=== PATIENT | male | born 1930 | race African-American/Black ===

== ENCOUNTER 2017-02-26 14:26 | Emergency (ER) | payer OTHER, MEDICAID ==
[~2017-02-26] VITALS: Ht 193 cm; Wt 97.5 kg
[~2017-02-26 14:26] MED LIST: ALLO300T2 PO; AMLO10TA80 PO; BENA20TA3 PO; COLC0.6T66 PO; DIGO250T81 PO; LORA10TA7 PO; QVAR80 IH; SODI650T PO; TIOT18CA3 IH; TRAM50TA3 PO; VIC PO
[2017-02-26] MEDS ORDERED: TRAMADOL 50MG TABLET PO ONE (16:15)
[2017-02-26] MEDS ORDERED: KETOROLAC 60MG/2ML VIAL IM ONE (16:45)
[2017-02-26 18:25] VITALS: BP 152/78
== END 2017-02-26 20:05 | disposition home or self-care (01) ==
LOC: ER 15:52
DX: M25.561 Pain in right knee (principal); I10 Essential (primary) hypertension; J45.909 Unspecified asthma, uncomplicated; Z96.659 Presence of unspecified artificial knee joint; Z88.0 Allergy status to penicillin
CPT/HCPCS: 73560; 96372; 99284; J1885; Z7610

== ENCOUNTER 2017-09-25 03:40 | Inpatient (IN) | payer MEDICAID, OTHER ==
[~2017-09-25] VITALS: Ht 190.5 cm; Wt 72.1 kg
[2017-09-25] VITALS (25 sets, daily range): BP systolic 139–167; BP diastolic 72–105
[2017-09-25] MEDS ORDERED: IPRATROPIUM BROMIDE (0.02%) 0.5MG/2.5ML NEB HHN STA (04:02)
[2017-09-25] MEDS ORDERED: ALBUTEROL (0.083%) 2.5MG/3ML NEB HHN STA (04:02)
[2017-09-25] MEDS ORDERED: METHYLPREDNISOLONE SOD SUCC 125 MG/2 ML VIAL IV STA (04:02)
[2017-09-25 04:37] LABS: BASOPHILS % 0.7 % (0.0-2.0); EOSINOPHILS % 6.7 % (0.0-5.0); HEMATOCRIT. 30.8 % (42.0-52.0); LYMPHOCYTES % 13.6 % (20.0-50.0); MEAN CORPUSCULAR HEMOGLOBIN 29.7 pg (28.0-32.0); MEAN CORPUSCULAR VOLUME 92.1 fL (80.0-94.0); MEAN PLATELET VOLUME 8.1 fl (7.4-10.4); MONOCYTES % 5.5 % (2.0-8.0); NEUTROPHILS % 73.5 % (40.0-76.0); PLATELET 260 x1000/uL (130-400); RED BLOOD CELL COUNT 3.35 mill/uL (4.7-6.1); RED CELL DISTRIBUTION WIDTH 15.3 % (11.6-14.6)
[2017-09-25 04:57] LABS: CARBON DIOXIDE 22 mEq/L (21-32); CHLORIDE 111 mEq/L (98-107)
[2017-09-25 05:02] LABS: BG BASE EXCESS -5.6 mmol/L (-2.0-2.0); BG BILEVEL POS AIRWAY PRESSURE 14/5; BG CARBOXYHEMOGLOBIN 0.6 % (0.5-1.5); BG DEOXYHEMOGLOBIN 0.8 % (0.0-5.0); BG FRACTION INSPIRED OXYGEN 50; BG HCO3 ACT 19.7 mmol/L (22.0-26.0); BG METHEMOGLOBIN 0.1 % (0.0-1.5); BG OXYGEN SATURATION 99.2 % (92.0-98.5); BG OXYHEMOGLOBIN 98.5 % (94.0-97.0); BG PCO2 37.9 mmHg (35.0-45.0); BG PH 7.334 (7.350-7.450); BG PO2 209.9 mmHg (75.0-100.0); BG SAMPLE SITE RIGHT RADIAL; BG TOTAL HEMOGLOBIN 10.5 g/dL (12.0-18.0); BG VENT MODE MASK - BIPAP
[2017-09-25 05:30] LABS: TROPONIN I 0.96 ng/mL (0.00-0.04)
[2017-09-25] MEDS ORDERED: SODIUM CHLORIDE 0.9% 1,000 ML IV SCH (06:06)
[2017-09-25] MEDS ORDERED: MORPHINE SULFATE 4 MG/ML CPJ (NOT FOR IM USE) IV PRN (07:45)
[2017-09-25] MEDS ORDERED: LORAZEPAM 2MG/ML CPJ IV PRN (07:45)
[2017-09-25] MEDS ORDERED: ONDANSETRON HCL 4MG/2ML VIAL IV PRN (07:45)
[2017-09-25] MEDS ORDERED: ENOXAPARIN 30MG/0.3ML SYR SUBCUT SCH (09:00)
[2017-09-25] MEDS ORDERED: IPRATROPIUM/ALBUTEROL 0.5-3(2.5)MG/3ML NEB INH PRN (09:00)
[2017-09-25] MEDS: FUROSEMIDE 40MG/4ML VIAL IV SCH (09:45)
[2017-09-25] MEDS: MULTIVITAMINS,THER W-MINERALS TABLET PO SCH (09:45)
[2017-09-25] MEDS: FERROUS SULFATE 325MG TABLET PO SCH (09:45)
[2017-09-25] MEDS: LORATADINE 10MG TABLET PO SCH (09:46)
[2017-09-25] MEDS: BENAZEPRIL 20MG TABLET PO SCH (09:46)
[2017-09-25] MEDS: AMLODIPINE 10MG TABLET PO SCH (09:46)
[2017-09-25] MEDS: COLCHICINE 0.6MG TABLET PO SCH (09:46)
[2017-09-25] MEDS: TRAMADOL 50MG TABLET PO SCH ×3 (10:00→21:25)
[2017-09-25] MEDS ORDERED: CLONIDINE 0.1MG TABLET PO PRN (11:15)
[2017-09-25] MEDS ORDERED: PNEUMOCOCCAL VACCINE IM ONE (13:00)
[2017-09-25] MEDS ORDERED: INFLUENZA VACCINE IM ONE (13:00)
[2017-09-25] MEDS: SODIUM BICARBONATE 650 MG TABLET PO SCH ×2 (13:30→16:29)
[2017-09-25] MEDS: METHYLPREDNISOLONE SOD SUCC 125 MG/2 ML VIAL IV SCH ×2 (13:30→21:22)
[2017-09-25 16:08] LABS: CREATINE KINASE MB FRACTION 12.8 ng/mL (0.5-3.6)
[2017-09-25 16:12] LABS: TROPONIN I 8.8 ng/mL (0.00-0.04)
[2017-09-25] MEDS: DIGOXIN 250MCG TABLET PO SCH (18:19)
[2017-09-25 18:50] LABS: CLARITY URINE CLEAR (CLEAR); COLOR URINE YELLOW (YELLOW); GLUCOSE URINE NEGATIVE (NEGATIVE); KETONES URINE NEGATIVE (NEGATIVE); LEUKOCYTE ESTERASE URINE NEGATIVE (NEGATIVE); NITRITE URINE NEGATIVE (NEGATIVE); OCCULT BLOOD URINE TRACE (NEGATIVE); PROTEIN URINE 3+ (NEGATIVE); SPECIFIC GRAVITY URINE 1.015 (1.005-1.030); UROBILINOGEN URINE 0.2 E.U./dL (0.2-1.0)
[2017-09-25 18:55] LABS: *AMPHETAMINES SCREEN URINE NEGATIVE (NEGATIVE); *BARBITURATES SCREEN URINE NEGATIVE (NEGATIVE); *BENZODIAZEPINES SCREEN URINE NEGATIVE (NEGATIVE); *COCAINE SCREEN URINE NEGATIVE (NEGATIVE); CANNABINOID URINE SCREEN NEGATIVE (NEGATIVE); METHADONE URINE SCREEN NEGATIVE (NEGATIVE); OPIATES URINE SCREEN NEGATIVE (NEGATIVE); PHENCYCLIDINE URINE SCREEN NEGATIVE (NEGATIVE)
[2017-09-25] MEDS: ASPIRIN 81MG TABLET PO SCH (21:18)
[2017-09-25 23:17] LABS: CREATINE KINASE MB FRACTION 9.7 ng/mL (0.5-3.6)
[2017-09-25 23:20] LABS: TROPONIN I 9.2 ng/mL (0.00-0.04)
[2017-09-26] VITALS (86 sets, daily range): BP systolic 111–179; BP diastolic 33–93
[2017-09-26] MEDS: ATORVASTATIN CALCIUM 10MG TABLET PO SCH ×2 (00:18→20:58)
[2017-09-26] MEDS: NITROGLYCERIN OINT 1GM/INCH UDPKT TD SCH ×3 (00:19→17:29)
[2017-09-26] MEDS ORDERED: ENOXAPARIN 60MG/0.6ML SYR SUBCUT SCH (00:30)
[2017-09-26] MEDS: TRAMADOL 50MG TABLET PO SCH ×4 (04:28→21:04)
[2017-09-26 06:25] LABS: BASOPHILS % 0.3 % (0.0-2.0); HEMATOCRIT. 27.9 % (42.0-52.0); HEMOGLOBIN. 9.3 g/dL (14.0-18.0); LYMPHOCYTES % 18.7 % (20.0-50.0); MEAN CORPUSCULAR HEMOGLOBIN 30.3 pg (28.0-32.0); MEAN CORPUSCULAR VOLUME 90.6 fL (80.0-94.0); MONOCYTES % 4.3 % (2.0-8.0); NEUTROPHILS % 76.7 % (40.0-76.0); PLATELET 193 x1000/uL (130-400); RED BLOOD CELL COUNT 3.08 mill/uL (4.7-6.1)
[2017-09-26] MEDS: METHYLPREDNISOLONE SOD SUCC 125 MG/2 ML VIAL IV SCH ×2 (06:29→13:05)
[2017-09-26 08:07] LABS: TROPONIN I 8.5 ng/mL (0.00-0.04)
[2017-09-26] MEDS: ALLOPURINOL 300 MG TABLET PO SCH (08:45)
[2017-09-26] MEDS: SODIUM BICARBONATE 650 MG TABLET PO SCH ×3 (08:45→17:29)
[2017-09-26] MEDS: FUROSEMIDE 40MG/4ML VIAL IV SCH (08:45)
[2017-09-26] MEDS: AMLODIPINE 10MG TABLET PO SCH (08:46)
[2017-09-26] MEDS: FERROUS SULFATE 325MG TABLET PO SCH (08:46)
[2017-09-26] MEDS: ASPIRIN 81MG TABLET PO SCH (08:46)
[2017-09-26] MEDS: MULTIVITAMINS,THER W-MINERALS TABLET PO SCH (08:47)
[2017-09-26] MEDS: BENAZEPRIL 20MG TABLET PO SCH (08:47)
[2017-09-26] MEDS: LORATADINE 10MG TABLET PO SCH (11:22)
[2017-09-26] MEDS: COLCHICINE 0.6MG TABLET PO SCH (11:22)
[2017-09-26] MEDS: SODIUM CHLORIDE 0.9% 1,000 ML IV SCH (11:23)
[2017-09-26] MEDS: IPRATROPIUM/ALBUTEROL 0.5-3(2.5)MG/3ML NEB HHN SCH ×2 (16:21→20:06)
[2017-09-26] MEDS ORDERED: IPRATROPIUM/ALBUTEROL 0.5-3(2.5)MG/3ML NEB HHN PRN (16:30)
[2017-09-26] MEDS: DIGOXIN 250MCG TABLET PO SCH (17:30)
[2017-09-26] MEDS: BUDESONIDE 0.5MG/2ML NEB HHN SCH (20:06)
[2017-09-26] MEDS: METHYLPREDNISOLONE SOD SUCC 40 MG/ML VIAL IV SCH (20:58)
[2017-09-27] VITALS (61 sets, daily range): BP systolic 100–147; BP diastolic 35–84
[2017-09-27] MEDS: IPRATROPIUM/ALBUTEROL 0.5-3(2.5)MG/3ML NEB HHN SCH ×6 (00:14→20:44)
[2017-09-27] MEDS: NITROGLYCERIN OINT 1GM/INCH UDPKT TD SCH ×3 (00:57→17:36)
[2017-09-27] MEDS: ENOXAPARIN 60MG/0.6ML SYR SUBCUT SCH (00:59)
[2017-09-27] MEDS: HYDROCODONE/ACETAMINOPHEN 5/325MG TABLET PO PRN (01:00)
[2017-09-27] MEDS: TRAMADOL 50MG TABLET PO SCH ×4 (04:57→21:53)
[2017-09-27 05:30] LABS: HEMATOCRIT. 28.6 % (42.0-52.0); HEMOGLOBIN. 9.3 g/dL (14.0-18.0); MEAN CORPUSCULAR HEMOGLOBIN 30.1 pg (28.0-32.0); MEAN CORPUSCULAR VOLUME 92.8 fL (80.0-94.0); PLATELET 195 x1000/uL (130-400); RED BLOOD CELL COUNT 3.08 mill/uL (4.7-6.1); RED CELL DISTRIBUTION WIDTH 15.5 % (11.6-14.6)
[2017-09-27] MEDS: METHYLPREDNISOLONE SOD SUCC 40 MG/ML VIAL IV SCH ×3 (05:52→23:21)
[2017-09-27 07:53] LABS: PLATELET ESTIMATE NORMAL
[2017-09-27] MEDS: ASPIRIN 81MG TABLET PO SCH (08:19)
[2017-09-27] MEDS: BENAZEPRIL 20MG TABLET PO SCH (08:19)
[2017-09-27] MEDS: LORATADINE 10MG TABLET PO SCH (08:19)
[2017-09-27] MEDS: SODIUM BICARBONATE 650 MG TABLET PO SCH ×3 (08:19→17:35)
[2017-09-27] MEDS: FERROUS SULFATE 325MG TABLET PO SCH (08:19)
[2017-09-27] MEDS: MULTIVITAMINS,THER W-MINERALS TABLET PO SCH (08:19)
[2017-09-27] MEDS: ALLOPURINOL 300 MG TABLET PO SCH (08:19)
[2017-09-27] MEDS: AMLODIPINE 10MG TABLET PO SCH (08:19)
[2017-09-27] MEDS: COLCHICINE 0.6MG TABLET PO SCH (08:19)
[2017-09-27] MEDS: BUDESONIDE 0.5MG/2ML NEB HHN SCH ×2 (08:33→20:44)
[2017-09-27] MEDS: SODIUM CHLORIDE 0.9% 1,000 ML IV SCH (11:07)
[2017-09-27] MEDS ORDERED: SODIUM POLYSTYRENE SULFONATE 15 G/60 ML BOT PO SCH (13:45)
[2017-09-27] MEDS: DIGOXIN 250MCG TABLET PO SCH (17:36)
[2017-09-27 18:33] LABS: PHOSPHORUS 2.4 mg/dL (2.5-4.9)
[2017-09-27 18:48] LABS: PROSTRATE SPECIFIC AG TOTAL 1.12 ng/mL (0.0-4.0)
[2017-09-27] MEDS: ATORVASTATIN CALCIUM 10MG TABLET PO SCH (21:18)
[2017-09-27] MEDS ORDERED: SODIUM PHOS,M-BASIC-D-BASIC 15 MM in DEXT 5% WATER 245 ML IV NR (22:00)
[2017-09-28] VITALS (12 sets, daily range): BP systolic 106–134; BP diastolic 55–78
[2017-09-28] MEDS: ENOXAPARIN 60MG/0.6ML SYR SUBCUT SCH (00:01)
[2017-09-28] MEDS: NITROGLYCERIN OINT 1GM/INCH UDPKT TD SCH ×3 (00:01→16:56)
[2017-09-28] MEDS: IPRATROPIUM/ALBUTEROL 0.5-3(2.5)MG/3ML NEB HHN SCH ×6 (01:36→20:29)
[2017-09-28] MEDS: TRAMADOL 50MG TABLET PO SCH ×4 (04:09→22:09)
[2017-09-28 06:36] LABS: HEMATOCRIT. 29.2 % (42.0-52.0); HEMOGLOBIN. 9.7 g/dL (14.0-18.0); MEAN CORPUSCULAR HEMOGLOBIN 30.3 pg (28.0-32.0); MEAN CORPUSCULAR VOLUME 91.6 fL (80.0-94.0); MEAN PLATELET VOLUME 9.2 fl (7.4-10.4); PLATELET 188 x1000/uL (130-400); RED BLOOD CELL COUNT 3.19 mill/uL (4.7-6.1); RED CELL DISTRIBUTION WIDTH 15.3 % (11.6-14.6)
[2017-09-28] MEDS: METHYLPREDNISOLONE SOD SUCC 40 MG/ML VIAL IV SCH ×3 (06:47→16:57)
[2017-09-28 07:25] LABS: TROPONIN I 3.7 ng/mL (0.00-0.04)
[2017-09-28] MEDS: COLCHICINE 0.6MG TABLET PO SCH (08:10)
[2017-09-28] MEDS: FERROUS SULFATE 325MG TABLET PO SCH (08:10)
[2017-09-28] MEDS: MULTIVITAMINS,THER W-MINERALS TABLET PO SCH (08:10)
[2017-09-28] MEDS: ASPIRIN 81MG TABLET PO SCH (08:10)
[2017-09-28] MEDS: LORATADINE 10MG TABLET PO SCH (08:10)
[2017-09-28] MEDS: BENAZEPRIL 20MG TABLET PO SCH (08:11)
[2017-09-28] MEDS: AMLODIPINE 10MG TABLET PO SCH (08:11)
[2017-09-28] MEDS: ALLOPURINOL 300 MG TABLET PO SCH (08:11)
[2017-09-28] MEDS: SODIUM BICARBONATE 650 MG TABLET PO SCH ×3 (08:11→16:55)
[2017-09-28] MEDS: BUDESONIDE 0.5MG/2ML NEB HHN SCH ×2 (08:26→20:28)
[2017-09-28] MEDS: SODIUM CHLORIDE 0.9% 1,000 ML IV SCH (09:51)
[2017-09-28 13:33] LABS: PLATELET ESTIMATE NORMAL
[2017-09-28] MEDS ORDERED: CLONIDINE 0.1MG TABLET PO SCH (14:00)
[2017-09-28] MEDS: DIGOXIN 250MCG TABLET PO SCH (17:00)
[2017-09-28] MEDS: ATORVASTATIN CALCIUM 10MG TABLET PO SCH (21:04)
[2017-09-28] MEDS: ENOXAPARIN 80MG/0.8ML SYR SUBCUT SCH (21:05)
[2017-09-29] VITALS (19 sets, daily range): BP systolic 107–152; BP diastolic 51–96
[2017-09-29] MEDS: NITROGLYCERIN OINT 1GM/INCH UDPKT TD SCH ×4 (00:08→23:52)
[2017-09-29] MEDS: IPRATROPIUM/ALBUTEROL 0.5-3(2.5)MG/3ML NEB HHN SCH ×6 (00:13→20:42)
[2017-09-29] MEDS: TRAMADOL 50MG TABLET PO SCH ×4 (04:09→22:04)
[2017-09-29] MEDS: METHYLPREDNISOLONE SOD SUCC 40 MG/ML VIAL IV SCH ×2 (05:27→16:59)
[2017-09-29] MEDS: HYDROCODONE/ACETAMINOPHEN 5/325MG TABLET PO PRN (05:59)
[2017-09-29] MEDS: THROAT LOZENGES-BENZOCAINE/MENTH/CETYLPYRD CL LOZENGES MM PRN ×2 (06:23→22:05)
[2017-09-29 07:20] LABS: HEMATOCRIT. 28.4 % (42.0-52.0); HEMOGLOBIN. 9.5 g/dL (14.0-18.0); MEAN CORPUSCULAR HEMOGLOBIN 30.7 pg (28.0-32.0); MEAN CORPUSCULAR VOLUME 91.5 fL (80.0-94.0); MEAN PLATELET VOLUME 9.3 fl (7.4-10.4); PLATELET 160 x1000/uL (130-400); RED CELL DISTRIBUTION WIDTH 15.4 % (11.6-14.6)
[2017-09-29] MEDS: LORATADINE 10MG TABLET PO SCH (08:20)
[2017-09-29] MEDS: MULTIVITAMINS,THER W-MINERALS TABLET PO SCH (08:20)
[2017-09-29] MEDS: ALLOPURINOL 300 MG TABLET PO SCH (08:21)
[2017-09-29] MEDS: ASPIRIN 81MG TABLET PO SCH (08:22)
[2017-09-29] MEDS: SODIUM BICARBONATE 650 MG TABLET PO SCH ×3 (08:22→18:13)
[2017-09-29] MEDS: BENAZEPRIL 20MG TABLET PO SCH (08:22)
[2017-09-29 08:23] LABS: TROPONIN I 2.9 ng/mL (0.00-0.04)
[2017-09-29] MEDS: BUDESONIDE 0.5MG/2ML NEB HHN SCH (09:22)
[2017-09-29 13:45] LABS: PLATELET ESTIMATE NORMAL
[2017-09-29] MEDS: DIGOXIN 250MCG TABLET PO SCH (18:12)
[2017-09-29] MEDS: ATORVASTATIN CALCIUM 10MG TABLET PO SCH (21:16)
[2017-09-29] MEDS: ENOXAPARIN 80MG/0.8ML SYR SUBCUT SCH (21:16)
[2017-09-30] VITALS (12 sets, daily range): BP systolic 132–156; BP diastolic 65–91
[2017-09-30] MEDS: IPRATROPIUM/ALBUTEROL 0.5-3(2.5)MG/3ML NEB HHN SCH ×6 (00:32→20:57)
[2017-09-30] MEDS: CLONIDINE 0.1MG TABLET PO PRN (04:04)
[2017-09-30] MEDS: TRAMADOL 50MG TABLET PO SCH ×2 (04:08→11:44)
[2017-09-30] MEDS: METHYLPREDNISOLONE SOD SUCC 40 MG/ML VIAL IV SCH ×2 (06:04→17:33)
[2017-09-30 08:04] LABS: HEMATOCRIT. 30.5 % (42.0-52.0); HEMOGLOBIN. 10.2 g/dL (14.0-18.0); MEAN CORPUSCULAR HEMOGLOBIN 30.4 pg (28.0-32.0); MEAN CORPUSCULAR VOLUME 91.2 fL (80.0-94.0); MEAN PLATELET VOLUME 9.1 fl (7.4-10.4); PLATELET 198 x1000/uL (130-400); RED BLOOD CELL COUNT 3.35 mill/uL (4.7-6.1); RED CELL DISTRIBUTION WIDTH 15.1 % (11.6-14.6)
[2017-09-30] MEDS: MULTIVITAMINS,THER W-MINERALS TABLET PO SCH (08:36)
[2017-09-30] MEDS: LORATADINE 10MG TABLET PO SCH (08:36)
[2017-09-30] MEDS: SODIUM BICARBONATE 650 MG TABLET PO SCH ×3 (08:36→17:33)
[2017-09-30] MEDS: ASPIRIN 81MG TABLET PO SCH (08:36)
[2017-09-30] MEDS: ALLOPURINOL 300 MG TABLET PO SCH (08:40)
[2017-09-30] MEDS: BENAZEPRIL 20MG TABLET PO SCH (08:44)
[2017-09-30] MEDS: NITROGLYCERIN OINT 1GM/INCH UDPKT TD SCH ×2 (08:44→15:59)
[2017-09-30 09:13] LABS: TROPONIN I 2.2 ng/mL (0.00-0.04)
[2017-09-30 12:44] LABS: PLATELET ESTIMATE NORMAL
[2017-09-30] MEDS: DIGOXIN 250MCG TABLET PO SCH (17:33)
[2017-09-30] MEDS: ATORVASTATIN CALCIUM 10MG TABLET PO SCH (22:12)
[2017-09-30] MEDS: ENOXAPARIN 80MG/0.8ML SYR SUBCUT SCH (22:13)
[2017-10-01] VITALS (10 sets, daily range): BP systolic 124–161; BP diastolic 60–83
[2017-10-01] MEDS: IPRATROPIUM/ALBUTEROL 0.5-3(2.5)MG/3ML NEB HHN SCH ×5 (00:39→16:00)
[2017-10-01] MEDS: CLONIDINE 0.1MG TABLET PO PRN (02:38)
[2017-10-01] MEDS: METHYLPREDNISOLONE SOD SUCC 40 MG/ML VIAL IV SCH (06:34)
[2017-10-01 08:00] LABS: HEMATOCRIT. 27.1 % (42.0-52.0); HEMOGLOBIN. 8.9 g/dL (14.0-18.0); MEAN CORPUSCULAR HEMOGLOBIN 29.9 pg (28.0-32.0); MEAN CORPUSCULAR VOLUME 91.2 fL (80.0-94.0); MEAN PLATELET VOLUME 8.9 fl (7.4-10.4); PLATELET 179 x1000/uL (130-400); RED BLOOD CELL COUNT 2.97 mill/uL (4.7-6.1)
[2017-10-01] MEDS: ASPIRIN 81MG TABLET PO SCH (08:10)
[2017-10-01] MEDS: LORATADINE 10MG TABLET PO SCH (08:10)
[2017-10-01] MEDS: MULTIVITAMINS,THER W-MINERALS TABLET PO SCH (08:11)
[2017-10-01] MEDS: ALLOPURINOL 300 MG TABLET PO SCH (08:11)
[2017-10-01] MEDS: SODIUM BICARBONATE 650 MG TABLET PO SCH ×2 (08:11→13:00)
[2017-10-01] MEDS: BENAZEPRIL 20MG TABLET PO SCH (08:11)
[2017-10-01] MEDS: THROAT LOZENGES-BENZOCAINE/MENTH/CETYLPYRD CL LOZENGES MM PRN (08:12)
[2017-10-01] MEDS: NITROGLYCERIN OINT 1GM/INCH UDPKT TD SCH ×3 (09:30→16:00)
[2017-10-01 09:42] LABS: PLATELET ESTIMATE NORMAL
== END 2017-10-01 17:24 | disposition home health service (06) | DRG 280 ==
LOC: ER 03:53 → 5EST 06:09 → ENRESERV 07:02 → MICUNO 19:02 → 3WST 09-27 14:53
PROVIDERS: ADMIT Internal Medicine Nephrology; ATTEND Internal Medicine Nephrology
PROC: 5A09357 Assistance with Respiratory Ventilation, Less than 24 Consecutive Hours, Continuous Positive Airway Pressure (ICD-10-PCS; principal; 2017-09-25)
DX: I21.4 Non-ST elevation (NSTEMI) myocardial infarction (principal); J96.00 Acute respiratory failure, unspecified whether with hypoxia or hypercapnia; N17.0 Acute kidney failure with tubular necrosis; J44.1 Chronic obstructive pulmonary disease with (acute) exacerbation; E44.0 Moderate protein-calorie malnutrition; I50.43 Acute on chronic combined systolic (congestive) and diastolic (congestive) heart failure; E87.2 Acidosis; J45.901 Unspecified asthma with (acute) exacerbation; I13.0 Hypertensive heart and chronic kidney disease with heart failure and stage 1 through stage 4 chronic kidney disease, or unspecified chronic kidney disease; I42.9 Cardiomyopathy, unspecified; L97.409 Non-pressure chronic ulcer of unspecified heel and midfoot with unspecified severity; Z68.1 Body mass index [BMI] 19.9 or less, adult; E87.5 Hyperkalemia; N18.9 Chronic kidney disease, unspecified; I50.9 Heart failure, unspecified; H54.8 Legal blindness, as defined in USA; B35.1 Tinea unguium; E78.00 Pure hypercholesterolemia, unspecified; H40.9 Unspecified glaucoma; Z96.652 Presence of left artificial knee joint; D63.8 Anemia in other chronic diseases classified elsewhere; I25.10 Atherosclerotic heart disease of native coronary artery without angina pectoris; M10.9 Gout, unspecified; M17.10 Unilateral primary osteoarthritis, unspecified knee; Z79.899 Other long term (current) drug therapy; Z87.891 Personal history of nicotine dependence; Z88.0 Allergy status to penicillin
CPT/HCPCS: 36415; 36600; 71010; 73562; 80048; 80053; 80305; 81001; 82375; 82550; 82553; 82728; 82805; 82962; 83540; 83550; 83605; 83880; 83970; 84100; 84153; 84484; 85025; 87040; 92523; 92610; 93005; 93306; 94640; 94660; 94664; 96374; 97116; 97162; 97166; 97168; 97530; 97535; 99291; J1650; J1940; J2920; J2930; J3490; J7030; J7060; J7620; J7626

== ENCOUNTER 2017-10-22 07:14 | Inpatient (IN) | payer OTHER ==
[2017-10-22] VITALS (9 sets, daily range): BP systolic 134–162; BP diastolic 70–98
[~2017-10-22] VITALS: Ht 188 cm; Wt 71.2 kg
[2017-10-22] MEDS ORDERED: LEVOFLOXACIN 500MG PREMIX 100 ML IV ONE (07:15)
[2017-10-22] MEDS ORDERED: FUROSEMIDE 20MG/2ML VIAL IVP ONE (07:15)
[2017-10-22] MEDS ORDERED: IPRATROPIUM BROMIDE (0.02%) 0.5MG/2.5ML NEB HHN STA (07:15)
[2017-10-22] MEDS ORDERED: MAGNESIUM 2 G PREMIX 50 ML IV STA (07:15)
[2017-10-22] MEDS ORDERED: ALBUTEROL (0.083%) 2.5MG/3ML NEB HHN STA (07:15)
[2017-10-22] MEDS ORDERED: METHYLPREDNISOLONE SOD SUCC 125 MG/2 ML VIAL IV STA (07:15)
[2017-10-22] MEDS ORDERED: ALBUTEROL (0.5%) 2.5MG/0.5ML NEB HHN ONE (07:33)
[2017-10-22] MEDS ORDERED: ALBUTEROL (0.083%) 2.5MG/3ML NEB ONE (07:41)
[2017-10-22] MEDS ORDERED: IPRATROPIUM/ALBUTEROL 0.5-3(2.5)MG/3ML NEB ONE (07:43)
[2017-10-22 07:50] LABS: BASOPHILS % 0.5 % (0.0-2.0); EOSINOPHILS % 2.8 % (0.0-5.0); HEMATOCRIT. 30.6 % (42.0-52.0); HEMOGLOBIN. 9.8 g/dL (14.0-18.0); LYMPHOCYTES % 10.3 % (20.0-50.0); MEAN CORPUSCULAR HEMOGLOBIN 29.6 pg (28.0-32.0); MEAN CORPUSCULAR VOLUME 92.9 fL (80.0-94.0); MEAN PLATELET VOLUME 8.3 fl (7.4-10.4); MONOCYTES % 6.3 % (2.0-8.0); NEUTROPHILS % 80.1 % (40.0-76.0); PLATELET 137 x1000/uL (130-400); RED CELL DISTRIBUTION WIDTH 18.3 % (11.6-14.6)
[2017-10-22 07:56] LABS: INR 1.1; PARTIAL THROMBOPLASTIN TIME 26.2 sec (23.4-31.0)
[2017-10-22 08:08] LABS: CARBON DIOXIDE 25 mEq/L (21-32); CHLORIDE 113 mEq/L (98-107)
[2017-10-22 08:12] LABS: BG BASE EXCESS -5.8 mmol/L (-2.0-2.0); BG BILEVEL POS AIRWAY PRESSURE 15/5; BG CARBOXYHEMOGLOBIN 0.3 % (0.5-1.5); BG HCO3 ACT 19.5 mmol/L (22.0-26.0); BG OXYHEMOGLOBIN 98.7 % (94.0-97.0); BG PCO2 37.8 mmHg (35.0-45.0); BG PH 7.331 (7.350-7.450); BG PO2 175.3 mmHg (75.0-100.0); BG SAMPLE SITE RIGHT RADIAL; BG TOTAL HEMOGLOBIN 10.2 g/dL (12.0-18.0); BG VENT MODE MASK - BIPAP; BG VENT RATE 10 set
[2017-10-22] MEDS ORDERED: ASPIRIN 300MG SUPP PR ONE (08:15)
[2017-10-22 09:14] LABS: CLARITY URINE CLEAR (CLEAR); COLOR URINE YELLOW (YELLOW); GLUCOSE URINE NEGATIVE (NEGATIVE); KETONES URINE NEGATIVE (NEGATIVE); LEUKOCYTE ESTERASE URINE NEGATIVE (NEGATIVE); NITRITE URINE NEGATIVE (NEGATIVE); OCCULT BLOOD URINE TRACE (NEGATIVE); PROTEIN URINE 2+ (NEGATIVE); SPECIFIC GRAVITY URINE 1.012 (1.005-1.030); UROBILINOGEN URINE 0.2 E.U./dL (0.2-1.0)
[2017-10-22] MEDS ORDERED: ASPIRIN 325MG EC TABLET PO ONE (10:00)
[2017-10-22] MEDS: ENOXAPARIN 30MG/0.3ML SYR SUBCUT SCH (12:23)
[2017-10-22] MEDS: AMLODIPINE 5MG TABLET PO SCH ×2 (12:23→21:21)
[2017-10-22] MEDS: NITROGLYCERIN OINT 1GM/INCH UDPKT TD SCH ×2 (12:24→21:20)
[2017-10-22] MEDS ORDERED: IPRATROPIUM/ALBUTEROL 0.5-3(2.5)MG/3ML NEB HHN PRN (13:45)
[2017-10-22] MEDS: MONTELUKAST SODIUM 10MG TABLET PO SCH (16:10)
[2017-10-22] MEDS: METHYLPREDNISOLONE SOD SUCC 40 MG/ML VIAL IV SCH ×2 (16:10→21:21)
[2017-10-22] MEDS: FAMOTIDINE 20MG/2ML VIAL IV SCH (21:21)
[2017-10-23] VITALS (12 sets, daily range): BP systolic 104–153; BP diastolic 60–82
[2017-10-23 05:50] LABS: BASOPHILS % 0.3 % (0.0-2.0); HEMATOCRIT. 27.9 % (42.0-52.0); HEMOGLOBIN. 8.9 g/dL (14.0-18.0); LYMPHOCYTES % 18.2 % (20.0-50.0); MEAN CORPUSCULAR HEMOGLOBIN 29.3 pg (28.0-32.0); MEAN CORPUSCULAR VOLUME 91.5 fL (80.0-94.0); MEAN PLATELET VOLUME 9.3 fl (7.4-10.4); MONOCYTES % 3.7 % (2.0-8.0); NEUTROPHILS % 77.8 % (40.0-76.0); PLATELET 149 x1000/uL (130-400); RED BLOOD CELL COUNT 3.05 mill/uL (4.7-6.1); RED CELL DISTRIBUTION WIDTH 17.8 % (11.6-14.6)
[2017-10-23] MEDS: METHYLPREDNISOLONE SOD SUCC 40 MG/ML VIAL IV SCH ×3 (05:55→21:09)
[2017-10-23] MEDS: NITROGLYCERIN OINT 1GM/INCH UDPKT TD SCH ×3 (05:55→21:09)
[2017-10-23] MEDS: FUROSEMIDE 40MG/4ML VIAL IVP SCH (09:37)
[2017-10-23] MEDS: AMLODIPINE 5MG TABLET PO SCH ×2 (09:37→21:09)
[2017-10-23] MEDS: ASPIRIN 81MG EC TABLET PO SCH (09:37)
[2017-10-23] MEDS ORDERED: SODIUM POLYSTYRENE SULFONATE 15 G/60 ML BOT PO NR (11:15)
[2017-10-23] MEDS: ENOXAPARIN 30MG/0.3ML SYR SUBCUT SCH (12:16)
[2017-10-23] MEDS: MONTELUKAST SODIUM 10MG TABLET PO SCH (17:36)
[2017-10-23] MEDS: FAMOTIDINE 20MG/2ML VIAL IV SCH (21:09)
[2017-10-24] VITALS (12 sets, daily range): BP systolic 146–183; BP diastolic 42–110
[2017-10-24] MEDS: METHYLPREDNISOLONE SOD SUCC 40 MG/ML VIAL IV SCH ×3 (05:21→21:31)
[2017-10-24] MEDS: NITROGLYCERIN OINT 1GM/INCH UDPKT TD SCH ×3 (05:21→21:31)
[2017-10-24 06:51] LABS: BASOPHILS % 0.1 % (0.0-2.0); HEMATOCRIT. 28.8 % (42.0-52.0); HEMOGLOBIN. 9.2 g/dL (14.0-18.0); LYMPHOCYTES % 12.8 % (20.0-50.0); MEAN CORPUSCULAR HEMOGLOBIN 29.3 pg (28.0-32.0); MEAN CORPUSCULAR VOLUME 91.6 fL (80.0-94.0); MEAN PLATELET VOLUME 9.8 fl (7.4-10.4); MONOCYTES % 3.3 % (2.0-8.0); NEUTROPHILS % 83.8 % (40.0-76.0); PLATELET 133 x1000/uL (130-400); RED BLOOD CELL COUNT 3.14 mill/uL (4.7-6.1); RED CELL DISTRIBUTION WIDTH 17.6 % (11.6-14.6)
[2017-10-24 08:17] LABS: TROPONIN I 6.3 ng/mL (0.00-0.04)
[2017-10-24] MEDS: AMLODIPINE 5MG TABLET PO SCH ×2 (08:48→20:46)
[2017-10-24] MEDS: ASPIRIN 81MG EC TABLET PO SCH (08:48)
[2017-10-24] MEDS: FUROSEMIDE 40MG/4ML VIAL IVP SCH (08:48)
[2017-10-24] MEDS: ENOXAPARIN 30MG/0.3ML SYR SUBCUT SCH (12:51)
[2017-10-24] MEDS: MONTELUKAST SODIUM 10MG TABLET PO SCH (18:18)
[2017-10-24] MEDS: IPRATROPIUM/ALBUTEROL 0.5-3(2.5)MG/3ML NEB HHN SCH (20:40)
[2017-10-24] MEDS: FAMOTIDINE 20MG/2ML VIAL IV SCH (20:45)
[2017-10-24] MEDS: ATORVASTATIN CALCIUM 40MG TABLET PO SCH (20:45)
[2017-10-25] VITALS (12 sets, daily range): BP systolic 107–165; BP diastolic 51–74
[2017-10-25] MEDS: IPRATROPIUM/ALBUTEROL 0.5-3(2.5)MG/3ML NEB HHN SCH ×6 (00:38→21:19)
[2017-10-25] MEDS: NITROGLYCERIN OINT 1GM/INCH UDPKT TD SCH ×3 (05:47→21:21)
[2017-10-25] MEDS: METHYLPREDNISOLONE SOD SUCC 40 MG/ML VIAL IV SCH (05:47)
[2017-10-25] MEDS: ASPIRIN 81MG EC TABLET PO SCH (08:58)
[2017-10-25] MEDS: AMLODIPINE 5MG TABLET PO SCH ×2 (08:59→21:21)
[2017-10-25] MEDS: FUROSEMIDE 40MG/4ML VIAL IVP SCH (08:59)
[2017-10-25] MEDS: ENOXAPARIN 30MG/0.3ML SYR SUBCUT SCH (12:39)
[2017-10-25] MEDS: PREDNISONE 20MG TABLET PO SCH (14:25)
[2017-10-25] MEDS: MONTELUKAST SODIUM 10MG TABLET PO SCH (17:04)
[2017-10-25] MEDS: ATORVASTATIN CALCIUM 40MG TABLET PO SCH (21:20)
[2017-10-25] MEDS: FAMOTIDINE 20MG TABLET PO SCH (21:20)
[2017-10-26] VITALS (11 sets, daily range): BP systolic 122–163; BP diastolic 66–89
[2017-10-26] MEDS: IPRATROPIUM/ALBUTEROL 0.5-3(2.5)MG/3ML NEB HHN SCH ×6 (00:29→21:36)
[2017-10-26] MEDS: NITROGLYCERIN OINT 1GM/INCH UDPKT TD SCH ×3 (05:45→20:44)
[2017-10-26 06:51] LABS: HEMATOCRIT. 30.8 % (42.0-52.0); HEMOGLOBIN. 9.8 g/dL (14.0-18.0); LYMPHOCYTES % 8.3 % (20.0-50.0); MEAN CORPUSCULAR HEMOGLOBIN 28.7 pg (28.0-32.0); MEAN CORPUSCULAR VOLUME 90.5 fL (80.0-94.0); MEAN PLATELET VOLUME 8.7 fl (7.4-10.4); MONOCYTES % 6.5 % (2.0-8.0); NEUTROPHILS % 85.2 % (40.0-76.0); PLATELET 114 x1000/uL (130-400); RED BLOOD CELL COUNT 3.41 mill/uL (4.7-6.1); RED CELL DISTRIBUTION WIDTH 17.3 % (11.6-14.6)
[2017-10-26] MEDS ORDERED: FUROSEMIDE 40MG TABLET PO SCH (09:00)
[2017-10-26] MEDS: PREDNISONE 20MG TABLET PO SCH (09:12)
[2017-10-26] MEDS: ASPIRIN 81MG EC TABLET PO SCH (09:13)
[2017-10-26] MEDS: AMLODIPINE 5MG TABLET PO SCH ×2 (09:13→20:43)
[2017-10-26] MEDS: ENOXAPARIN 30MG/0.3ML SYR SUBCUT SCH (12:35)
[2017-10-26] MEDS ORDERED: CLONIDINE 0.1MG TABLET PO PRN (12:45)
[2017-10-26] MEDS ORDERED: FUROSEMIDE 40MG/4ML VIAL IVP NR (14:30)
[2017-10-26] MEDS: MONTELUKAST SODIUM 10MG TABLET PO SCH (17:48)
[2017-10-26] MEDS: ATORVASTATIN CALCIUM 40MG TABLET PO SCH (20:43)
[2017-10-26] MEDS: FAMOTIDINE 20MG TABLET PO SCH (20:43)
[2017-10-27] VITALS (12 sets, daily range): BP systolic 109–169; BP diastolic 60–79
[2017-10-27] MEDS: IPRATROPIUM/ALBUTEROL 0.5-3(2.5)MG/3ML NEB HHN SCH ×6 (00:33→21:48)
[2017-10-27] MEDS: NITROGLYCERIN OINT 1GM/INCH UDPKT TD SCH ×3 (05:18→21:17)
[2017-10-27 07:08] LABS: HEMATOCRIT. 30.7 % (42.0-52.0); HEMOGLOBIN. 9.9 g/dL (14.0-18.0); MEAN CORPUSCULAR VOLUME 90.5 fL (80.0-94.0); MEAN PLATELET VOLUME 10.3 fl (7.4-10.4); RED CELL DISTRIBUTION WIDTH 17.2 % (11.6-14.6)
[2017-10-27] MEDS: FUROSEMIDE 40MG/4ML VIAL IVP SCH (08:53)
[2017-10-27] MEDS: AMLODIPINE 5MG TABLET PO SCH ×2 (08:59→21:17)
[2017-10-27] MEDS: ASPIRIN 81MG EC TABLET PO SCH (09:00)
[2017-10-27] MEDS: PREDNISONE 20MG TABLET PO SCH (09:00)
[2017-10-27 09:38] LABS: TROPONIN I 2.3 ng/mL (0.00-0.04)
[2017-10-27] MEDS: ENOXAPARIN 30MG/0.3ML SYR SUBCUT SCH (12:00)
[2017-10-27 15:16] LABS: PLATELET ESTIMATE NORMAL
[2017-10-27 15:20] LABS: PLATELET 141 x1000/uL (130-400)
[2017-10-27] MEDS: MONTELUKAST SODIUM 10MG TABLET PO SCH (16:25)
[2017-10-27] MEDS: FAMOTIDINE 20MG TABLET PO SCH (21:16)
[2017-10-27] MEDS: ATORVASTATIN CALCIUM 40MG TABLET PO SCH (21:17)
[2017-10-28] VITALS (19 sets, daily range): BP systolic 104–166; BP diastolic 58–98
[2017-10-28] MEDS: IPRATROPIUM/ALBUTEROL 0.5-3(2.5)MG/3ML NEB HHN SCH ×3 (01:02→12:45)
[2017-10-28] MEDS: NITROGLYCERIN OINT 1GM/INCH UDPKT TD SCH ×3 (06:42→22:11)
[2017-10-28] MEDS: PREDNISONE 20MG TABLET PO SCH (08:00)
[2017-10-28] MEDS: ASPIRIN 81MG EC TABLET PO SCH (08:39)
[2017-10-28] MEDS: AMLODIPINE 5MG TABLET PO SCH ×2 (08:39→21:16)
[2017-10-28] MEDS: FUROSEMIDE 40MG/4ML VIAL IVP SCH (08:40)
[2017-10-28] MEDS ORDERED: HEPARIN SODIUM 1,000 UNIT/1ML VIAL IV ONE (11:27)
[2017-10-28] MEDS ORDERED: NITROGLYCERIN 50MCG/ML 10ML VIAL (CATH LAB) IV ONE (11:27)
[2017-10-28] MEDS ORDERED: NICARDIPINE 100MCG/ML 10ML VIAL (CATH LAB) IV ONE (11:27)
[2017-10-28] MEDS ORDERED: LIDOCAINE HCL 1% 20ML VIAL (Pyxis) INJ ONE (15:25)
[2017-10-28] MEDS ORDERED: IODIXANOL 320MG/ML 100 ML BOTTLE IV ONE (15:25)
[2017-10-28] MEDS ORDERED: FENTANYL CITRATE/PF 50MCG/ML 2ML VIAL ONE (15:36)
[2017-10-28] MEDS ORDERED: MIDAZOLAM HCL 2 MG/2 ML VIAL ONE (15:37)
[2017-10-28] MEDS: MONTELUKAST SODIUM 10MG TABLET PO SCH (18:09)
[2017-10-28] MEDS: FAMOTIDINE 20MG TABLET PO SCH (21:16)
[2017-10-28] MEDS: ATORVASTATIN CALCIUM 40MG TABLET PO SCH (21:16)
[2017-10-29] VITALS (10 sets, daily range): BP systolic 107–147; BP diastolic 52–92
[2017-10-29] MEDS: NITROGLYCERIN OINT 1GM/INCH UDPKT TD SCH ×2 (06:16→13:49)
[2017-10-29 06:27] LABS: MEAN CORPUSCULAR HEMOGLOBIN 29.3 pg (28.0-32.0); MEAN CORPUSCULAR VOLUME 90.5 fL (80.0-94.0); MEAN PLATELET VOLUME 8.9 fl (7.4-10.4); PLATELET 113 x1000/uL (130-400); RED BLOOD CELL COUNT 3.43 mill/uL (4.7-6.1); RED CELL DISTRIBUTION WIDTH 17.4 % (11.6-14.6)
[2017-10-29] MEDS: FUROSEMIDE 40MG/4ML VIAL IVP SCH (08:08)
[2017-10-29] MEDS: ASPIRIN 81MG EC TABLET PO SCH (08:08)
[2017-10-29] MEDS: AMLODIPINE 5MG TABLET PO SCH (08:08)
[2017-10-29] MEDS: PREDNISONE 20MG TABLET PO SCH (08:08)
[2017-10-29 08:50] LABS: TROPONIN I 1.9 ng/mL (0.00-0.04)
[2017-10-29] MEDS ORDERED: SODIUM POLYSTYRENE SULFONATE 15 G/60 ML BOT PO SCH (12:00)
== END 2017-10-29 15:16 | disposition home health service (06) | DRG 280 ==
LOC: ER 07:15 → EDBEDREQ 07:39 → 5EST 08:03 → EDBEDREQ 08:07 → ENRESERV 08:31 → 3WST 10-28 17:00
PROVIDERS: ADMIT Internal Medicine; ATTEND Internal Medicine
PROC: 5A09357 Assistance with Respiratory Ventilation, Less than 24 Consecutive Hours, Continuous Positive Airway Pressure (ICD-10-PCS; principal; 2017-10-22)
PROC: 4A023N7 Measurement of Cardiac Sampling and Pressure, Left Heart, Percutaneous Approach (ICD-10-PCS; 2017-10-28)
PROC: B2111ZZ Fluoroscopy of Multiple Coronary Arteries using Low Osmolar Contrast (ICD-10-PCS; 2017-10-28)
DX: I21.4 Non-ST elevation (NSTEMI) myocardial infarction (principal); E43 Unspecified severe protein-calorie malnutrition; J96.01 Acute respiratory failure with hypoxia; I50.23 Acute on chronic systolic (congestive) heart failure; J44.1 Chronic obstructive pulmonary disease with (acute) exacerbation; N17.9 Acute kidney failure, unspecified; E87.5 Hyperkalemia; J45.901 Unspecified asthma with (acute) exacerbation; I13.0 Hypertensive heart and chronic kidney disease with heart failure and stage 1 through stage 4 chronic kidney disease, or unspecified chronic kidney disease; E87.0 Hyperosmolality and hypernatremia; I42.9 Cardiomyopathy, unspecified; N18.9 Chronic kidney disease, unspecified; I49.3 Ventricular premature depolarization; I25.10 Atherosclerotic heart disease of native coronary artery without angina pectoris; I27.20 Pulmonary hypertension, unspecified; I49.1 Atrial premature depolarization; I73.9 Peripheral vascular disease, unspecified; M10.9 Gout, unspecified; Z96.653 Presence of artificial knee joint, bilateral; Z88.0 Allergy status to penicillin; Z79.899 Other long term (current) drug therapy; Z87.891 Personal history of nicotine dependence; Z68.20 Body mass index [BMI] 20.0-20.9, adult
CPT/HCPCS: 36415; 36600; 71010; 80048; 80053; 81001; 82375; 82805; 83605; 83690; 83880; 84484; 85025; 85610; 85730; 87040; 87086; 93005; 93306; 93458; 94640; 94660; 94664; 96365; 96366; 96368; 96375; 97162; 99291; C1769; C1887; C1893; J1644; J1650; J1940; J1956; J2250; J2920; J2930; J3010; J3475; J3490; J7512; J7611; J7620; Q9967